=== PATIENT | male | born 1945 | race Two or more races ===

== ENCOUNTER → 2017-12-10 | Outpatient (CLI) | payer MEDICARE, BC ==
[2017-12-10 14:03] LABS: ALT 29 U/L (21-72); AST 23 U/L (17-59); Albumin 3.9 g/dL (3.5-5.0); Alkaline Phosphatase 63 U/L (38-126); Anion Gap 10 mmol/L; Blood Urea Nitrogen 13 mg/dL (9-20); Calcium 9.3 mg/dL (8.4-10.2); Carbon Dioxide 29 mmol/L (22-30); Chloride 101 mmol/L (98-107); Cholesterol 191 mg/dL (<200); Glucose 125 mg/dL (74-99); HDL Cholesterol 37 mg/dL (40-60); LDL Cholesterol,Calculated 135 mg/dL (0-99); Potassium 4.9 mmol/L (3.5-5.1); Sodium 140 mmol/L (137-145); Total Bilirubin 1.6 mg/dL (0.2-1.3); Total Protein 6.2 g/dL (6.3-8.2); Triglycerides 96 mg/dL (<150)
== END | disposition home or self-care (01) ==
LOC: LABWHC1 12:07
PROVIDERS: ATTEND Internal Medicine Clinical Cardiac Electrophysiology
DX: I42.9 Cardiomyopathy, unspecified (principal); R00.1 Bradycardia, unspecified
CPT/HCPCS: 36415; 80053; 80061; 84443

== ENCOUNTER → 2018-02-17 | Day surgery (SDC) | payer MEDICARE, BC ==
[2018-02-16 10:11] VITALS: BMI 31.9
[~2018-02-17] MED LIST: SODIUM CHLORIDE 0.9% 1,000 ML IV SCH
[2018-02-17 11:29] VITALS: RESP 18
[2018-02-17 12:42] VITALS: BP 144/74; PULSE 56; TEMP 97.8
--- NOTE | 2018-02-17 12:48 | P.PCN ---
Preoperative Diagnosis: 72-year-old male patient with complete heart block status post dual-chamber pacemaker implantation with cardiomyopathy that persist despite medical treatment. Per extremity venogram 15 mL of IV dye injected in the left upper extremity Patent left subclavian venous system Cine fluoroscopy of the leads performed Atrial lead in right atrial appendage RV lead and RV septum, both active fixation leads No fractures or breaks noted Plan Upgrade to a biventricular ICD, implantation of a new LV lead and implantation of an ICD lead Will need a TVP for complete heart block Condition: stable
== END | disposition home or self-care (01) ==
LOC: CATHEP 10:59
PROVIDERS: ATTEND Internal Medicine Clinical Cardiac Electrophysiology
DX: I44.2 Atrioventricular block, complete (principal); I42.0 Dilated cardiomyopathy; R00.1 Bradycardia, unspecified; E78.5 Hyperlipidemia, unspecified; I10 Essential (primary) hypertension; F17.210 Nicotine dependence, cigarettes, uncomplicated; Z95.0 Presence of cardiac pacemaker; Z79.82 Long term (current) use of aspirin; Z79.899 Other long term (current) drug therapy; Z88.8 Allergy status to other drugs, medicaments and biological substances
CPT/HCPCS: 36005; 75820; 76000

== ENCOUNTER → 2018-06-15 | Outpatient (CLI) | payer MEDICARE, BC ==
[2018-06-15 14:31] LABS: HCT 46.4 % (39.0-53.0); HGB 15.5 gm/dL (13.0-17.5); MCH 30.5 pg (25.0-35.0); MCHC 33.5 g/dL (31.0-37.0); MCV 91.2 fL (80.0-100.0); Mean Platelet Volume 7.2; Platelet Count 179 k/uL (150-450); RBC 5.09 m/uL (4.30-5.90); RDW 12.8 % (11.5-15.5); WBC 6.9 k/uL (3.8-10.6)
[2018-06-15 14:41] LABS: Potassium 4.9 mmol/L (3.5-5.1)
== END | disposition home or self-care (01) ==
LOC: LABPAT 13:57
PROVIDERS: ATTEND Internal Medicine Clinical Cardiac Electrophysiology
DX: Z01.812 Encounter for preprocedural laboratory examination (principal); I42.0 Dilated cardiomyopathy; R00.1 Bradycardia, unspecified
CPT/HCPCS: 80051; 82565; 82947; 84520; 85027

== ENCOUNTER 2018-06-25 10:05 | Day surgery (SDC) | payer MEDICARE, BC ==
[2018-06-23 11:08] VITALS: BMI 32.3
[~2018-06-25 10:05] MED LIST changes: +ceFAZolin 1,000 MG in SODIUM CHLORIDE 0.9% IRRIGATIO 250 ML IRRIGATION ONE
[2018-06-25] MEDS ORDERED: MIDAZOLAM 2 MG/2 ML VIAL ONE (13:09)
[2018-06-25] MEDS ORDERED: fentaNYL (PF) 50 MCG/ML 2 ML AMP ONE (13:09)
[2018-06-25] MEDS ORDERED: LIDOCAINE 1% INJ 10MG/ML (20 ML MDV) ONE ×3 (13:25→14:05)
[2018-06-25] MEDS: ceFAZolin IN SWFI 2 GM/20 ML SYRINGE IVP ONE ×2 (13:29→13:31)
[2018-06-25] MEDS ORDERED: LIDOCAINE 1% INJ 10MG/ML (20 ML MDV) SQ ONE ×4 (13:55→15:36)
[2018-06-25] MEDS ORDERED: IOPAMIDOL-250 50ML BTL IV ONE ×2 (14:37→14:48)
[2018-06-25] MEDS ORDERED: ACETAMINOPHEN TAB 325 MG TAB PO PRN (16:26)
[2018-06-25] MEDS ORDERED: HYDROcodone/APAP 5-325MG 1 EACH TAB PO PRN (16:26)
[2018-06-25] MEDS ORDERED: ACETAMINOPHEN IV (For NPO) 1,000 MG in EMPTY BAG 1 BAG IVPB ONE (16:26)
[2018-06-25] MEDS: ceFAZolin IN SWFI 2 GM/20 ML SYRINGE IVP SCH (18:23)
[2018-06-25 18:25] LABS: Anion Gap 7 mmol/L; Blood Urea Nitrogen 16 mg/dL (9-20); Calcium 9.1 mg/dL (8.4-10.2); Carbon Dioxide 27 mmol/L (22-30); Chloride 106 mmol/L (98-107); Glucose 95 mg/dL (74-99); Potassium 4.4 mmol/L (3.5-5.1); Sodium 140 mmol/L (137-145)
[2018-06-25] MEDS: CARVEDILOL 3.125 MG TAB PO SCH (18:35)
--- NOTE | 2018-06-25 23:32 | PCN ---
PROCEDURE NOTE Mr. Hawkins is a 72-year-old male patient who has complete heart block. He underwent a dual-chamber pacemaker in 2015. At that time, his LV function was normal and stress test was normal. Over the last 3 years, there has been a progressive steady decline in LV systolic function, worsening heart failure symptoms and severe LV dysfunction documented on stress testing as well as on 2D echo. He has underlying complete heart block/bradycardia and has 100% RV paced. 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 Patient was brought to the EP lab in a fasting state. Written informed consent was obtained prior to the procedure. The left shoulder area was prepped and draped as per protocol. 1% lidocaine was used for local anesthesia. An incision was made directly over the previous surgical site and carried down to the level of the generator. The generator was explanted. The device had been programmed to DOO mode. The generator was explanted. The leads were freed from the surrounding soft tissue. Partial capsulectomy was performed. The pocket was enlarged. Axillary vein access was obtained but a micropuncture wire could not be passed across the stenosis. 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 Therefore, the subclavian vein access was obtained and a wire was placed down to the IVC. Dilation of the vein was performed with serial dilators. Following that, a 9.5 German sheath was placed. Via this coronary sinus sheath was placed. The coronary sinus was accessed. A venogram was performed. The patient had a large anterior vein lateral and two large lateral veins. The lower lateral vein was targeted and the lead was positioned in an excellent position and very stable position. This was a [employer] lead model #4398, 88 cm length and serial number [id number]. The pacing thresholds of the proximal poles were excellent. There was no diaphragmatic stimulation. The pacing thresholds in the LV 4-3 was 1.8 V at 0.5 milliseconds. The impedance of 880 ohms. 10 V test negative. The right atrial and right ventricular chronic leads were in stable position and without any fractures or breaks. Thresholds are excellent. The sheath was removed. The LV lead was secured to the underlying pectoralis muscle. The chronic generator was explanted. The new generator was implanted. This was a [employer] SOLARA quad CRTP MRI model number W4TR03 serial number [id number]. leads and generator were then placed in subfascial pocket after hemostasis was assured using Aqua heydi device. The device then programmed to DDDR mode with an AV delay of 120-150 milliseconds and an LV offset of 40 milliseconds with pacing in poles 2-3. The narrowest paced QRS was noted with LV 2 3 rather than LV 4 3. In addition, when simultaneous pacing was performed the patient had a left bundle branch block paced rhythm, with LV offset, it became a right bundle type of paced rhythm. The patient tolerated the procedure well without any acute complications. PLAN: Maximize heart failure and cardiomyopathy medications. Start statins and start a baby aspirin. MMODL / IJN: [id number] /
[2018-06-26] MEDS: ceFAZolin IN SWFI 2 GM/20 ML SYRINGE IVP SCH ×3 (01:10→13:18)
--- NOTE | 2018-06-26 07:11 | P.DS ---
Providers Attending physician: Catracho Peterson Primary care physician: Stated None Hospital Course: Patient is doing well. He is ambulating in the room. 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 after on pacemaker implantation in 2014 for complete heart block/bradycardia 100% RV pacing Progressive decline in LV systolic function Upgrade to a biventricular pacemaker yesterday He had subclavian vein/axillary junction stenosis A more central access was obtained and LV lead was placed in the lateral vein in excellent position Plan Carvedilol 3.125 mg twice daily Losartan 25 mg in the evening Atorvastatin 10 g by mouth daily Discharge home today after IV antibiotics chest x-ray and device interrogation and follow-up in the device clinic in 5 days and follow-up with me in 2 months Plan - Discharge Summary Discharge Rx Participant: No New Discharge Prescriptions: New RX: Atorvastatin [Lipitor] 10 mg PO DAILY #90 tab RX: Carvedilol [Coreg] 3.125 mg PO BID #90 tablet RX: Losartan [Cozaar] 25 mg PO DAILY #90 tab Discontinued Metoprolol Tartrate [Lopressor] 25 mg PO DAILY RX: Aspirin 162.5 mg PO DAILY No Action Glucosam/Joseph-Msm1/C/Brett/Bosw [Glucosamine-Chondroitin Tablet] 1 each PO DAILY Discharge Medication List Glucosam/Joseph-Msm1/C/Brett/Bosw [Glucosamine-Chondroitin Tablet] 1 each PO DAILY 06/23/18 [History] RX: Atorvastatin [Lipitor] 10 mg PO DAILY #90 tab 06/26/18 [Rx] RX: Carvedilol [Coreg] 3.125 mg PO BID #90 tablet 06/26/18 [Rx] RX: Losartan [Cozaar] 25 mg PO DAILY #90 tab 06/26/18 [Rx] Follow up Appointment(s)/Referral(s): Catracho Peterson MD [STAFF PHYSICIAN] - 1 Week (Device clinic follow-up 5 days Follow-up with Dr. Ray in 2 months Discharge home after completion of IV antibiotics device interrogation chest x- ray) Activity/Diet/Wound Care/Special Instructions: PATIENT EDUCATION MATERIAL Instructions following a heart rhythm device implant. 1. Keep dressing DRY for 5 DAYS. You may cover the area with Saran or Cling Wrap, prior to a shower. 2. The dressing will be removed in the Device Clinic at [facility]. Absorbable sutures were used to close the wound. 3. Avoid raising the left arm above the shoulder level. 4 week restriction 4. Avoid arm movements, like backscratching, rubbing the head, or pulling on a cord. 4 weeks restriction 5. Gentle range of motion movements of the shoulder, closest to the incision should be performed to avoid a frozen shoulder. (Pendulum exercises of the shoulder) 6. The opposite arm may be used freely. 7. Avoid driving for 7 days. 8. Avoid activities such as golfing, swimming, weed whacking, lifting more than 10 pounds weight, bowling, gymnastics and weight training/lifting. (6 weeks restriction) 9. Activities such as wood chopping with an axe, pull-ups in the gymnasium, power lifting, arc-welding, being close to home induction cooktops will always be a problem. 10. Arm sling is only a reminder not to raise the arm above the head. You do not need to keep the arm completely immobilized. Your free to move the arm and use it and for normal activities. In case of any problems, please call [facility], [place], @ [phone], Attention: Device Clinic Device clinic follow-up in 5 days Follow-up with primary windows software developer in 2-3 months Discharge Disposition: HOME SELF-CARE
[2018-06-26 08:19] VITALS: PULSE 63; RESP 19; TEMP 97.6
[2018-06-26] MEDS: CARVEDILOL 3.125 MG TAB PO SCH (08:31)
[2018-06-26] MEDS ORDERED: ASPIRIN 81 MG PO SCH (09:00)
[2018-06-26] MEDS ORDERED: ATORVASTATIN 10 MG TAB PO SCH (09:00)
--- NOTE | 2018-06-26 10:54 | XR ---
EXAMINATION TYPE: XR chest 2V DATE OF EXAM: 06/26/2018 COMPARISON: NONE HISTORY: Lead placement check TECHNIQUE: Frontal and lateral views of the chest are obtained. FINDINGS: There is a generator in the left pectoral region, there are leads in the right atrium, martinez tricle, coronary sinus. Heart is enlarged. No evident pneumothorax. Difficult to exclude small right effusion. Question sclerotic focus proximal left humerus. IMPRESSION: No evident complication status post lead placement. Indeterminate sclerotic focus proxim al left humerus, consider dedicated imaging.
[2018-06-26 11:53] VITALS: BP 140/71
== END 2018-06-26 14:00 | disposition home or self-care (01) ==
LOC: CATHEP 10:05 → 1SOBS 15:37 → CATHEP 06-26 14:00
PROVIDERS: ATTEND Internal Medicine Clinical Cardiac Electrophysiology
DX: Z45.010 Encounter for checking and testing of cardiac pacemaker pulse generator [battery] (principal); I42.0 Dilated cardiomyopathy; I44.2 Atrioventricular block, complete; R00.1 Bradycardia, unspecified; I11.0 Hypertensive heart disease with heart failure; I50.9 Heart failure, unspecified; E78.5 Hyperlipidemia, unspecified; K44.9 Diaphragmatic hernia without obstruction or gangrene; Z79.82 Long term (current) use of aspirin; Z79.899 Other long term (current) drug therapy; Z88.8 Allergy status to other drugs, medicaments and biological substances; Z87.891 Personal history of nicotine dependence; Z85.820 Personal history of malignant melanoma of skin
CPT/HCPCS: 33225; 33229; 80048; 71046; C1769 ×5; C1892; C1730; C2621; C1900; J2250; J0690 ×3; J2001; J3010; Q9966